=== PATIENT | male | born 1955 ===

== ENCOUNTER → 2023-12-03 14:27 | Outpatient (BNVA) | payer MEDICARE, MEDICAID, SELFPAY | PROVIDERS: PCP Internal Medicine; Referring Provider Internal Medicine; Visit Provider Podiatrist | DX: G80.9 Cerebral palsy, unspecified (principal); B35.3 Tinea pedis; R60.9 Edema, unspecified; I73.9 Peripheral vascular disease, unspecified | CPT/HCPCS: 11719; 93922; 99203 ==